=== PATIENT | female | born 1995 | race Caucasian/White ===

== ENCOUNTER 2019-05-30 00:26 | Emergency (ER) | payer BC ==
[~2019-05-30] VITALS: Ht 180.3 cm; Wt 71.7 kg
[2019-05-30 00:27] VITALS: BP 139/82; PULSE 97; RESP 20; Ht 180.3 cm; Wt 71.7 kg
== END 2019-05-30 02:22 | disposition left against medical advice (07) ==
LOC: FTE 00:26
DX: Z53.21 Procedure and treatment not carried out due to patient leaving prior to being seen by health care provider (principal)